=== PATIENT | female | born 1965 | race Caucasian/White ===

== ENCOUNTER → 2016-08-18 | Outpatient (CLI) | payer BC | LOC: COL.RAD 12:52 | DX: R10.11 Right upper quadrant pain (principal) ==

== ENCOUNTER → 2016-08-28 | Outpatient (CLI) | payer BC | LOC: COL.RAD 05:52 | DX: R10.11 Right upper quadrant pain (principal); Y84.2 Radiological procedure and radiotherapy as the cause of abnormal reaction of the patient, or of later complication, without mention of misadventure at the time of the procedure | CPT/HCPCS: A9537; J2805 ==